=== PATIENT | male | born 1990 | race Caucasian/White ===

== ENCOUNTER 2019-09-22 13:25 | Emergency (ER) | payer BC, OTHER ==
[2019-09-22] MEDS ORDERED: LIDOCAINE 1% W/EPI 1:100,000 MDV 20 ML VIAL ONE (13:54)
--- NOTE | 2019-09-22 14:11 | EDPHYS ---
Physician Documentation [facility] Name: Sha Thompson Age: 29 yrs Sex: Male : 1990 Arrival Date: 09/22/2019 Time: 13:28 Bed 15 Private MD: ED Physician Neri Ewing HPI: 09/21 14:05 This 29 yrs old Male presents to ER via Ambulatory with complaints of ma2 Laceration To Hand. 14:05 The patient has a laceration occurred at home. Onset: The symptoms/episode ma2 began/occurred acutely, 1 hour(s) ago. Associated signs and symptoms: Pertinent negatives: dizziness, heavy bleeding, suspected foreign body. The patient has not experienced similar symptoms in the past. Historical: - Allergies: 13:40 Cefzil; ss - Home Meds: 13:40 Alprazolam Oral [Active]; ss - PMHx: 13:40 Anxiety; ss - PSHx: 13:40 ACL repair; ss - Immunization history:: Adult Immunizations up to date. - Social history:: Smoking status: Patient/guardian denies using alcohol, street drugs, The patient lives with family. - Family history:: not pertinent. ROS: 14:05 Constitutional: Negative for fever, chills, and weight loss. ma2 14:05 All other systems are negative. Exam: 14:05 Constitutional: This is a well developed, well nourished patient who is awake, alert, ma2 and in no acute distress. Chest/axilla: Normal chest wall appearance and motion. Nontender with no deformity. No lesions are appreciated. Cardiovascular: Regular rate and rhythm with a normal S1 and S2. No gallops, murmurs, or rubs. Normal PMI, no JVD. No pulse deficits. Respiratory: Lungs have equal breath sounds bilaterally, clear to auscultation and percussion. No rales, rhonchi or wheezes noted. No increased work of breathing, no retractions or nasal flaring. Abdomen/GI: Soft, non-tender, with normal bowel sounds. No distension or tympany. No guarding or rebound. No evidence of tenderness throughout. Skin: right hand laceration on dorsal aspect of base of index, finger, 1.5 cm lac superficial linear, no tendon injury, no vascular injury, no bone tenderness able to fully range all hand jonts, otherwise skin is Warm, dry with normal turgor. Normal color with no rashes, no lesions, and no evidence of cellulitis. MS/ Extremity: Pulses equal, no cyanosis. Neurovascular intact. Full, normal range of motion. Neuro: Awake and alert, GCS 15, oriented to person, place, time, and situation. Cranial nerves II-XII grossly intact. Motor strength 5/5 in all extremities. Sensory grossly intact. Cerebellar exam normal. Normal gait. Vital Signs: 13:34 BP 143 / 86; Pulse 120; Resp 16; Temp 98.7(TE); Pulse Ox 97% on R/A; Weight 90.72 kg; ss Height 6 ft. 0 in. (182.88 cm); Pain 4/10; 14:27 Pulse 80; Resp 16; Pulse Ox 98% ; Pain 0/10; ll1 13:34 Body Mass Index 27.12 (90.72 kg, 182.88 cm) ss Laceration: 14:05 Wound Repair of 1.5cm ( 0.6in ) subcutaneous laceration to right hand. Linear shaped.. ma2 Distal neuro/vascular/tendon intact. Anesthesia: Local anesthetic administered with 7 mls of 1% lidocaine w/ Epi. Wound prep: Moderate cleansing. Skin closed with 3 2-0 Prolene using simple sutures and sterile technique. Dressed with Bacitracin. Patient tolerated well. MDM: 13:34 Patient medically screened. ma2 14:05 Differential diagnosis: tendon injury. Data reviewed: vital signs, nurses notes. ma2 Counseling: I had a detailed discussion with the patient and/or guardian regarding: the historical points, exam findings, and any diagnostic results supporting the discharge/admit diagnosis, the presence of at least one elevated blood pressure reading (>120/80) during this emergency department visit, the need for outpatient follow up. Response to treatment: the patient's symptoms have markedly improved after treatment. Administered Medications: 14:12 Drug: Lidocaine-Epinephrine -2 % (1:100,000) 10 ml Route: Infiltration; ll1 14:13 Follow up: Response: No adverse reaction ll1 Disposition: 09/22/19 14:10 Discharged to Home. Impression: Laceration without foreign body of right index finger without damage to nail. - Condition is Stable. - Discharge Instructions: Laceration Care, Adult, [id number]. - Prescriptions for Clindamycin HCl 300 mg Oral Capsule - take 1 capsule by ORAL route every 6 hours for 10 days; 40 capsule. Diclofenac Sodium 75 mg Oral Tablet Sustained Release - take 1 tablet by ORAL route 2 times per day; 30 tablet. - Medication Reconciliation Form, Thank You Letter, Antibiotic Education, Prescription Opioid Use form. - Follow up: Private Physician; When: Tomorrow; Reason: Continuance of care. - Notes: remove stiches in 1 week Signatures: Tamica Mccollum RN RN ss Neri Ewing MD MD ma2 Ludy Bocanegra RN RN ll1 Corrections: (The following items were deleted from the chart) 14:29 14:10 09/22/2019 14:10 Discharged to Home. Impression: Laceration without foreign body ll1 of right index finger without damage to nail. Condition is Stable. Forms are Medication Reconciliation Form, Thank You Letter, Antibiotic Education, Prescription Opioid Use. Follow up: Private Physician; When: Tomorrow; Reason: Continuance of care. ma2
--- NOTE | 2019-09-22 14:11 | ER ---
Nurse's Notes [facility] Name: Sha Thompson Age: 29 yrs Sex: Male : 1990 Arrival Date: 09/22/2019 Time: 13:28 Bed 15 Private MD: Diagnosis: Laceration without foreign body of right index finger without damage to nail Presentation: 09/21 13:34 Chief complaint: Patient states: using a scraper when it slipped causing a lacerated to ss top of L hand. No active bleeding at this time. Dry blood noted to bilateral hands. Coronavirus screen: Proceed with normal triage. Patient denies a cough. Patient denies shortness of breath or difficulty breathing. Patient denies measured and/or subjective temperature greater than 100.4F prior to today's visit. Patient denies travel on a cruise ship or to a country the [facility] currently lists as an affected area. Patient denies contact with known and/or suspected case of COVID-19. Ebola Screen: Patient denies exposure to infectious person. Patient denies travel to an Ebola-affected area in the 21 days before illness onset. Complicating Factors: There are no complicating factors for this patient. Initial Sepsis Screen: Does the patient meet any 2 criteria? HR > 90 bpm. No. Patient's initial sepsis screen is negative. Does the patient have a suspected source of infection? No. Patient's initial sepsis screen is negative. Risk Assessment: Do you want to hurt yourself or someone else? Patient reports no desire to harm self or others. Onset of symptoms was September 22, 2019. 13:34 Method Of Arrival: Ambulatory ss 13:34 Acuity: JAISON 4 ss Historical: - Allergies: 13:40 Cefzil; ss - Home Meds: 13:40 Alprazolam Oral [Active]; ss - PMHx: 13:40 Anxiety; ss - PSHx: 13:40 ACL repair; ss - Immunization history:: Adult Immunizations up to date. - Social history:: Smoking status: Patient/guardian denies using alcohol, street drugs, The patient lives with family. - Family history:: not pertinent. Screenin:40 Abuse screen: Denies threats or abuse. Denies injuries from another. Nutritional ss screening: No deficits noted. Tuberculosis screening: Never had TB. Fall Risk None identified. Assessment: 13:40 General: Appears in no apparent distress. Behavior is cooperative, anxious. Pain: ss Complains of pain in dorsum of left hand Pain currently is 4 out of 10 on a pain scale. Quality of pain is described as burning, tender, Pain began just prior to arrival. Is continuous. Neuro: Level of Consciousness is awake, alert, obeys commands, Oriented to person, place, time, situation. Cardiovascular: Capillary refill < 3 seconds is brisk in bilateral fingers. Cardiovascular: Pulses are palpable in right radial artery and left radial artery. Respiratory: Respiratory effort is even, unlabored, Respiratory pattern is regular, symmetrical. Derm: initially patient had dried blood noted to bilateral hands. Dressed wound with Kerlix, and saline soaked gauze. No active bleeding noted at this time. and hands washed with soap and water. Musculoskeletal: Range of motion: intact in all extremities, Swelling absent. Injury Description: Laceration sustained to dorsum of left hand is clean, 0.5 to 2.5 cm long, was sustained less than 30 minutes ago. is bleeding no active bleeding noted. Vital Signs: 13:34 BP 143 / 86; Pulse 120; Resp 16; Temp 98.7(TE); Pulse Ox 97% on R/A; Weight 90.72 kg; ss Height 6 ft. 0 in. (182.88 cm); Pain 4/10; 14:27 Pulse 80; Resp 16; Pulse Ox 98% ; Pain 0/10; ll1 13:34 Body Mass Index 27.12 (90.72 kg, 182.88 cm) ED Course: 13:28 Patient arrived in ED. ll1 13:34 Ludy Bocanegra, CARLITA is Primary Nurse. ll1 13:34 Neri Ewing MD is Attending Physician. ma2 13:36 Triage completed. ss 13:40 Arm band placed on right wrist. ss 13:40 Patient has correct armband on for positive identification. ss 14:28 Dressings: non-adherent dressing x 1 left hand Tube gauze X 1; left hand triple ll1 antibiotic. 14:28 No provider procedures requiring assistance completed. Patient did not have IV access ll1 during this emergency room visit. Administered Medications: 14:12 Drug: Lidocaine-Epinephrine -2 % (1:100,000) 10 ml Route: Infiltration; ll1 14:13 Follow up: Response: No adverse reaction ll1 Outcome: 14:10 Discharge ordered by . maged 14:28 Discharged to home ambulatory. ll1 14:28 Condition: stable 14:28 Discharge instructions given to patient, family, Instructed on discharge instructions, follow up and referral plans. no drinking with medication, medication usage, wound care, Demonstrated understanding of instructions, follow-up care, medications, wound care, Prescriptions given X 2. 14:29 Patient left the ED. 1 Signatures: Tamica Mccollum, RN RN Neri Ewing MD MD ca2 Ludy Bocanegra RN RN 1
[2019-09-22 14:34] VITALS: BP 143/86; TEMP 98.7
[2019-09-22 14:36] VITALS: O2SAT 98
== END 2019-09-22 14:29 | disposition home or self-care (01) ==
LOC: ER 13:25
PROC: 0JQJ0ZZ Repair Right Hand Subcutaneous Tissue and Fascia, Open Approach (ICD-10-PCS; principal; 2019-09-22)
DX: S61.210A Laceration without foreign body of right index finger without damage to nail, initial encounter (principal); W45.8XXA Other foreign body or object entering through skin, initial encounter; Y93.9 Activity, unspecified; Y92.009 Unspecified place in unspecified non-institutional (private) residence as the place of occurrence of the external cause; F41.9 Anxiety disorder, unspecified; Z88.8 Allergy status to other drugs, medicaments and biological substances
CPT/HCPCS: 99283

== ENCOUNTER 2019-10-11 18:30 | Emergency (ER) | payer OTHER ==
[2019-10-11 19:26] LABS: Absolute Lymphocytes (CBC) 1.9 K/uL (0.7-4.9); Basophils % 0.5 % (0-1.3); Hematocrit 44.4 % (39.6-49.0); Lymphocytes % 25.1 % (15.3-44.8); MPV 7.6 fL (7.6-11.3); RBC Red Blood Cell Count 4.63 M/uL (4.33-5.43)
[2019-10-11 19:40] LABS: Albumin 4.7 g/dL (3.4-5.0); Potassium 4.5 mmol/L (3.5-5.1)
[2019-10-11 19:48] LABS: Bilirubin Direct 0.1 mg/dL (0-0.2); Bilirubin Total 0.6 mg/dL (0.2-1.0); Protein, Total 7.9 g/dL (6.4-8.2)
--- NOTE | 2019-10-11 19:55 | RAD REPORT ---
EXAM DESCRIPTION: CT - Chest For Pe Angio - 10/11/2019 7:49 pm CLINICAL HISTORY: sob COMPARISON: None. TECHNIQUE: Dynamically enhanced axial 3 mm thick images of the chest were obtained during administra tion of <100> mL Isovue 370 IV contrast. Coronal and oblique reconstruction images were generated and reviewed. Exam utilizes a protocol for optimal evaluation of pulmonary arterial tree. Maximum intensity projections 3D imaging was utilized All CT scans are performed using dose optimization technique as appropriate and may include automated exposure control or mA/KV adjustment according to patient size. FINDINGS: A pulmonary embolus is not seen. A thoracic aortic aneurysm is not noted. A pleural effusion is not seen. A pericardial effusion is not seen. A lung consolidation is not present. IMPRESSION: Negative for a pulmonary embolism.
--- NOTE | 2019-10-11 20:03 | RAD REPORT ---
EXAM DESCRIPTION: CT - Abdomen Pelvis W Contrast - 10/11/2019 7:49 pm CLINICAL HISTORY: Abdominal pain COMPARISON: none. TECHNIQUE: Computed axial tomography of the abdomen pelvis was obtained. 100 cc Isovue-300 was admin istered intravenously. Oral contrast was not requested which limits evaluation of bowel. All CT scans are performed using dose optimization technique as appropriate and may include automated exposure control or mA/KV adjustment according to patient size. FINDINGS: The liver, spleen, pancreas, adrenal and kidneys appear unremarkable. There is no evidence of diverticulitis. Normal appendix IMPRESSION: No acute abnormality is displayed.
--- NOTE | 2019-10-11 20:18 | EDPHYS ---
Physician Documentation [facility] Name: Sha Thompsno Age: 29 yrs Sex: Male : 1990 Arrival Date: 10/11/2019 Time: 18:31 Bed 15 Private MD: ED Physician Jorje Andrade HPI: 10/10 19:01 This 29 yrs old Male presents to ER via Ambulatory with complaints of jmm Abdominal Pain. 19:01 The patient presents with abdominal pain. Onset: The symptoms/episode began/occurred jmm gradually, 8 day(s) ago. The symptoms radiate to right back. Associated signs and symptoms: Pertinent negatives: diarrhea, fever, vomiting. This is a 29 year old male with a history of anxiety that presents to the ED with complaints of right upper abdominal pain with constipation. Pain will occasionally radiate into his back. Denies vomiting or diarrhea. Complains of constipation. . Historical: - Allergies: 18:38 Cefzil; sv - PMHx: 18:38 Anxiety; sv - PSHx: 18:38 ACL repair; sv - Immunization history:: Adult Immunizations. - Social history:: Smoking status: Patient denies any tobacco usage or history of. ROS: 19:01 Constitutional: Negative for fever, chills, and weight loss, Cardiovascular: Negative jmm for chest pain, palpitations, and edema, Respiratory: Negative for shortness of breath, cough, wheezing, and pleuritic chest pain. 19:01 Abdomen/GI: Positive for abdominal pain. 19:01 All other systems are negative. Exam: 19:01 Constitutional: This is a well developed, well nourished patient who is awake, alert, jmm and in no acute distress. Head/Face: atraumatic. Eyes: EOMI, no conjunctival erythema appreciated ENT: Moist Mucus Membranes Neck: Trachea midline, Supple Chest/axilla: Normal chest wall appearance and motion. Cardiovascular: Regular rate and rhythm. No edema appreciated Respiratory: Normal respirations, no respiratory distress appreciated Abdomen/GI: Non distended, soft Back: Normal ROM Skin: General appearance color normal MS/ Extremity: Moves all extremities, no obvious deformities appreciated, no edema noted to the lower extremities Neuro: Awake and alert, normal gait Psych: Behavior is normal, Mood is normal, Patient is cooperative and pleasant Vital Signs: 18:38 BP 120 / 82; Pulse 76; Resp 18; Temp 98.1; Pulse Ox 97% ; Weight 88.45 kg; Height 6 ft. sv 0 in. (182.88 cm); 20:32 BP 121 / 82; Pulse 74; Resp 18; Temp 98; Pulse Ox 100% on R/A; mg2 18:38 Body Mass Index 26.45 (88.45 kg, 182.88 cm) sv MDM: 19:01 Patient medically screened. [facility] 20:17 Data reviewed: vital signs, nurses notes. Counseling: I had a detailed discussion with don the patient and/or guardian regarding: the historical points, exam findings, and any diagnostic results supporting the discharge/admit diagnosis, lab results, radiology results, the need for outpatient follow up, to return to the emergency department if symptoms worsen or persist or if there are any questions or concerns that arise at home. ED course: Patient is alert and non toxic in appearance in the ED. Patient is advised to follow up with GI for further evaluation. Patient is otherwise given strict return precautions. Patient understood and agrees with the plan of care. . 10/10 19:14 Order name: Basic Metabolic Panel; Complete Time: 19:51 [facility] 10/10 19:14 Order name: CBC with Diff; Complete Time: 19:35 [facility] 10/10 19:14 Order name: Hepatic Function; Complete Time: 19:51 [facility] 10/10 19:14 Order name: Lipase; Complete Time: 19:51 [facility] 10/10 19:14 Order name: CT Chest For PE Angio; Complete Time: 19:58 [facility] 10/10 19:14 Order name: CT Abd/Pelvis - IV Contrast Only; Complete Time: 20:06 [facility] 10/10 19:14 Order name: IV Saline Lock; Complete Time: 19:15 [facility] 10/10 19:14 Order name: Labs collected and sent; Complete Time: 19:15 [facility] Administered Medications: No medications were administered Disposition: 10/11/19 20:18 Discharged to Home. Impression: Generalized abdominal pain. - Condition is Stable. - Discharge Instructions: Abdominal Pain, Adult, Constipation, Adult, [id number]. - Prescriptions for Miralax 17 gram/dose Oral - take 1 packet by ORAL route once daily dilute powder in 8 ounces of water or juice; 30 packet. - Medication Reconciliation Form, Thank You Letter, Antibiotic Education, Prescription Opioid Use form. - Follow up: Jin Means MD; When: 2 - 3 days; Reason: Recheck today's complaints, Continuance of care, Re-evaluation by your physician. Addendum: 10/14/2019 16:34 Co-signature as Attending Physician, Jorje Andrade MD I agree with the assessment and k dr plan of care. Signatures: Dispatcher [employer] Jamila Nina, RN RN Jorje Andrade MD MD [facility] Fernando Olivares PA PA [facility] Pasquale Brock RN RN mg2 Corrections: (The following items were deleted from the chart) 10/10 20:33 20:18 10/11/2019 20:18 Discharged to Home. Impression: Generalized abdominal pain. mg2 Condition is Stable. Forms are Medication Reconciliation Form, Thank You Letter, Antibiotic Education, Prescription Opioid Use. Follow up: Jin Means; When: 2 - 3 days; Reason: Recheck today's complaints, Continuance of care, Re-evaluation by your physician. [facility]
--- NOTE | 2019-10-11 20:18 | ER ---
Nurse's Notes [facility] Name: Sha Thompson Age: 29 yrs Sex: Male : 1990 Arrival Date: 10/11/2019 Time: 18:31 Bed 15 Private MD: Diagnosis: Generalized abdominal pain Presentation: 10/10 18:37 Chief complaint: Patient states: RUQ pain and constipation started today. Denies n/v/d. sv Coronavirus screen: Proceed with normal triage. Patient denies a cough. Patient denies shortness of breath or difficulty breathing. Patient denies measured and/or subjective temperature greater than 100.4F prior to today's visit. Patient denies travel on a cruise ship or to a country the [facility] currently lists as an affected area. Patient denies contact with known and/or suspected case of COVID-19. Ebola Screen: No symptoms or risks identified at this time. Risk Assessment: Do you want to hurt yourself or someone else? Patient reports no desire to harm self or others. Onset of symptoms was October 11, 2019. 18:37 Method Of Arrival: Ambulatory sv 18:37 Acuity: JAISON 3 sv 18:38 Initial Sepsis Screen: Does the patient meet any 2 criteria? No. Patient's initial sv sepsis screen is negative. Does the patient have a suspected source of infection? Yes: Acute abdominal pain. Triage Assessment: 18:38 General: Appears in no apparent distress. uncomfortable, Behavior is calm, cooperative, sv appropriate for age. Pain: Complains of pain in right upper quadrant. Neuro: Level of Consciousness is awake, alert, obeys commands, Oriented to person, place, time, situation, Gait is steady. Respiratory: Respiratory effort is even, unlabored. Historical: - Allergies: 18:38 Cefzil; sv - PMHx: 18:38 Anxiety; sv - PSHx: 18:38 ACL repair; sv - Immunization history:: Adult Immunizations. - Social history:: Smoking status: Patient denies any tobacco usage or history of. Screenin:16 Abuse screen: Denies threats or abuse. Denies injuries from another. Nutritional mg2 screening: No deficits noted. Tuberculosis screening: No symptoms or risk factors identified. Fall Risk IV access (20 points). Assessment: 19:15 General: Appears in no apparent distress. comfortable, Behavior is calm, cooperative. mg2 Pain: Complains of pain in abdomen Pain does not radiate. Pain currently is 2 out of 10 on a pain scale. Quality of pain is described as crampy, Pain began gradually, Is intermittent. Neuro: Level of Consciousness is awake, alert, obeys commands, Oriented to person, place, time, situation. Cardiovascular: Capillary refill < 3 seconds Patient's skin is warm and dry. Respiratory: Airway is patent Respiratory effort is even, unlabored, Respiratory pattern is regular, symmetrical. GI: Bowel sounds present X 4 quads. Abd is soft and non tender. : No signs and/or symptoms were reported regarding the genitourinary system. EENT: No signs and/or symptoms were reported regarding the EENT system. Derm: Skin is intact, is healthy with good turgor, Skin is pink, warm \T\ dry. normal. Musculoskeletal: Circulation, motion, and sensation intact. Capillary refill < 3 seconds. 20:15 Reassessment: Patient appears in no apparent distress at this time. Patient and/or mg2 family updated on plan of care and expected duration. Pain level reassessed. Patient is alert, oriented x 3, equal unlabored respirations, skin warm/dry/pink. Vital Signs: 18:38 BP 120 / 82; Pulse 76; Resp 18; Temp 98.1; Pulse Ox 97% ; Weight 88.45 kg; Height 6 ft. sv 0 in. (182.88 cm); 20:32 BP 121 / 82; Pulse 74; Resp 18; Temp 98; Pulse Ox 100% on R/A; mg2 18:38 Body Mass Index 26.45 (88.45 kg, 182.88 cm) sv ED Course: 18:31 Patient arrived in ED. as 18:37 Arm band placed on. sv 18:38 Triage completed. sv 18:43 Fernando Olivares PA is PHCP. [facility] 18:44 Jorje Andrade MD is Attending Physician. [facility] 18:56 Aris Ackerman, CARLITA is Primary Nurse. bp 19:14 Inserted saline lock: 20 gauge in right antecubital area, using aseptic technique. mg2 Blood collected. 19:16 Patient has correct armband on for positive identification. Pulse ox on. NIBP on. Door mg2 closed. Warm blanket given. 19:16 No provider procedures requiring assistance completed. mg2 19:49 CT Chest For PE Angio In Process Unspecified. EDMS 19:49 CT Abd/Pelvis - IV Contrast Only In Process Unspecified. EDMS 20:18 Jin Means MD is Referral Physician. jmm 20:32 IV discontinued, intact, bleeding controlled, No redness/swelling at site. Pressure mg2 dressing applied. Administered Medications: No medications were administered Outcome: 20:18 Discharge ordered by . jmm 20:33 Discharged to home ambulatory. mg2 20:33 Condition: stable 20:33 Discharge instructions given to patient, Instructed on discharge instructions, follow up and referral plans. medication usage, Demonstrated understanding of instructions, follow-up care, medications, Prescriptions given X 1. 20:33 Patient left the ED. mg2 Signatures: Dispatcher [employer] Jamila Nina, RN RN Fernando Mac PA PA jmm Martinez, Amelia as Peltier, Brian, CARLITA RN bp Pasquale Brock RN RN mg2
== END 2019-10-11 20:33 | disposition home or self-care (01) ==
LOC: ER 18:30
DX: R10.84 Generalized abdominal pain (principal); Z88.1 Allergy status to other antibiotic agents
CPT/HCPCS: 85025; 80048; 36415; 80076; 83690; 71275; 74177; 99284; Q9967